=== PATIENT | female | born 1945 | race Caucasian/White ===

== ENCOUNTER 2021-08-31 09:07 | Outpatient (CLI) | payer MEDICARE | END 2021-08-31 09:08 | disposition home or self-care (01) | LOC: BICMAMMO 09:07 | PROVIDERS: ATTEND Internal Medicine | DX: Z12.31 Encounter for screening mammogram for malignant neoplasm of breast (principal); Z13.820 Encounter for screening for osteoporosis; M85.851 Other specified disorders of bone density and structure, right thigh; M85.852 Other specified disorders of bone density and structure, left thigh; Z78.0 Asymptomatic menopausal state | CPT/HCPCS: 77063; 77067; 77080 ==

== ENCOUNTER 2024-01-08 09:06 | Outpatient (CLI) | payer MEDICARE | END 2024-01-08 09:07 | disposition home or self-care (01) | LOC: SCSRAD 09:06 | DX: K59.00 Constipation, unspecified (principal); M41.9 Scoliosis, unspecified | CPT/HCPCS: 74018 ==